=== PATIENT | female | born 1955 | race Hispanic/Latino ===

== ENCOUNTER 2019-07-24 11:52 | Emergency (ER) | payer OTHER ==
[~2019-07-24] VITALS: Ht 157.5 cm; Wt 90.7 kg
[~2019-07-24 11:52] MED LIST: DIOVAN HCT 1601 EAC1 PO; PROTONIX40 MG/ML PO
[2019-07-24] MEDS ORDERED: METOCLOPRAMIDE HCL 10 MG TAB PO ONE (13:45)
[2019-07-24] MEDS ORDERED: ACETAMIN/BUTALBITAL/CAFFEINE TAB PO ONE (13:45)
--- NOTE | 2019-07-24 14:25 | Diagnostic Imaging Report ---
Exam: Head CT without contrast History: Headache, high blood pressure Comparison studies: None Technique: Axial images were obtained from the skull base to the vertex. Coronal and sagittal images reconstructed from the axial data. Dose modulation, iterative reconstruction, and/or weight based adjustment of the mA/kV was utilized to reduce the radiation dose to as low as reasonably achievable. Radiation dose: Total DLP: 921.4 mGy*cm. Estimated effective dose: DLP x 0.015 Intravenous contrast: None Findings: Scalp: No abnormalities. 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 Otherwise, no abnormalities. Brain sulci: Appropriate for age. Ventricles: Normal in size and configuration. No hydrocephalus. Extra-axial spaces: No masses, no fluid collection. Parenchyma: No abnormal densities. No masses, hemorrhage, acute or chronic vascular insults. Sellar/suprasellar region: No abnormalities. Craniocervical junction: Patent foramen magnum. No Chiari one malformation. Included paranasal sinuses: Clear. Middle ear and included mastoid cavities: Clear. Incidental findings: Atherosclerotic calcifications in the carotid siphons. IMPRESSION: No acute abnormalities. Signed by: Dr. Gerardo Cruz M.D. on 07/24/2019 2:23 PM
[2019-07-24 16:05] VITALS: BP 168/104
[2019-07-24] MEDS ORDERED: HYDROCHLOROTH12.5 MG PO (16:08)
== END 2019-07-24 16:17 | disposition home or self-care (01) ==
LOC: ER 11:52
DX: I10 Essential (primary) hypertension (principal); R51 Headache
CPT/HCPCS: 70450; 99283; J8597